=== PATIENT | female | born 1935 | race Caucasian/White ===

== ENCOUNTER 2016-10-15 09:58 | Outpatient (CLI) | payer MEDICARE | END 2016-10-15 09:59 | disposition home or self-care (01) | DX: N30.01 Acute cystitis with hematuria (principal); R35.0 Frequency of micturition ==

== ENCOUNTER 2017-03-17 11:39 | Outpatient (CLI) | payer MEDICARE ==
[2017-03-17 18:00] LABS: BILIRUBIN,URINE NEGATIVE (NEGATIVE)
[2017-03-17 18:17] LABS: UA w/ MICROSCOPIC CHARGE YES; UR CULTURE IF IND INDICATED
== END 2017-03-17 11:40 | disposition home or self-care (01) ==
LOC: LAB.F 11:39
PROVIDERS: ATTEND Internal Medicine
DX: N30.90 Cystitis, unspecified without hematuria (principal)
CPT/HCPCS: 81001; 81003; 87086

== ENCOUNTER 2020-07-18 12:03 | Outpatient (CLI) | payer MEDICARE ==
--- NOTE | 2020-07-18 14:19 | XRAY Report ---
PROCEDURE: Hip w/Pelvis 2-3V LT INDICATIONS: LT HIP PAIN TECHNIQUE: AP pelvis with lateral view(s) of the bilateral hip(s). COMPARISON: None. FINDINGS: Bones: No fractures or dislocations but there is moderate degenerative osteoarthritis at each hip david int, symmetric. Pelvic ring appears intact. No suspicious bony lesions. Soft tissues: The visualized bowel gas pattern is normal. No suspicious soft tissue calcifications. IMPRESSION: No trauma found. Symmetric moderate hip joint osteoarthritis noted. Low lumbosacral spin e moderately severe degenerative disc disease also is incidentally noted and only partially visualize d on the frontal view. Reviewed by: Renzo Molina MD on 07/18/2020 2:18 PM PDT Approved by: Renzo Molina MD on 07/18/2020 2:18 PM PDT Station ID: [id number]
== END 2020-07-18 12:04 | disposition home or self-care (01) ==
LOC: DI 12:03
PROVIDERS: ATTEND Internal Medicine
DX: M16.12 Unilateral primary osteoarthritis, left hip (principal); M51.36 Other intervertebral disc degeneration, lumbar region

== ENCOUNTER 2022-02-06 14:30 | Outpatient (CLI) | payer MEDICARE ==
--- NOTE | 2022-02-06 16:54 | MRI Report ---
PROCEDURE: Lumbar Spine W/O INDICATIONS: LEG PAIN, NOCTURNAL LEG CRAMPS TECHNIQUE: Noncontrast sagittal T1 spin echo and T2 fast echo, sagittal STIR, axial T1 and T2 fast spin echo thr ough the lumbar spine. In cases with scoliosis, additional coronal T2 fast spin echo may be performe d. COMPARISON: None. FINDINGS: Image quality: Excellent. Alignment and Curvature: There is normal bony alignment. Convex right thoracolumbar spine scoliosis. Bone Marrow: Modic type I reactive endplate changes noted adjacent to the L2-L3 and L4-L5 discs. Raj c type II reactive endplate changes noted adjacent to the L1-L2, L3-L4 and L5-S1 discs. No acute vert ebral body compression fractures. Spinal Cord: Conus medullaris terminates at the L1-L2 disc level. Visualized cord demonstrates norm al signal and size. Paraspinous Soft Tissues: No paravertebral masses. T12-L1: Loss of disc signal and height. Moderate, diffuse disc bulge. Mild bilateral facet hypertrop hy. Mild narrowing of the central canal. Moderate bilateral neural foraminal narrowing. No neural com pression L1-L2: Loss of disc signal and height. Moderate, diffuse disc bulge. Mild bilateral facet hypertro phy. Mild narrowing of the central canal. Moderate right and severe left neuroforaminal narrowing com pression the exiting left L1 nerve root. L2-L3: Loss of disc signal and height. Moderate, diffuse disc bulge. Severe bilateral facet hypert rophy. Severe narrowing of the central canal compression of the nerve roots of the cauda equina. Mode rate right and severe left neural foraminal narrowing with compression of the exiting left L2 nerve r oot. L3-L4: Loss of disc signal and height. Mild, diffuse disc bulge. [id number] bilateral facet o f artery. Moderately minimal complete hypertrophy. Moderate narrowing of the central canal. Moderate right and severe left neural foraminal narrowing with compression the exiting left L3 nerve root. L4-L5: Loss of disc signal and height. Mild, diffuse disc bulge. Moderate bilateral facet hypertrop hy. Moderate narrowing of the central canal. Severe right and moderate left neural foraminal narrowin g with compression of the exiting right L4 nerve root. L5-S1: Loss of disc signal and height. Mild, diffuse disc bulge. Small left foraminal disc protrusi on. Left foraminal disc protrusion abuts and compresses the exiting left L5 nerve root. Mild bilatera l facet hypertrophy. Mild narrowing of the central canal. Mild right and moderate left neural foramin al narrowing. IMPRESSION: 1. Convex right thoracolumbar spine scoliosis. 2. Multilevel degenerative disc disease. 3. Multilevel facet arthropathy. 4. Severe L2-L3 central canal stenosis with compression of the nerve roots of the cauda equina. 5. Severe left L2-L3 and L3-L4 neural foraminal narrowing with compression of the exiting left L2 and L3 nerve roots. Severe right L4-L5 neural foraminal narrowing with compression of the exiting right L4 nerve root. 6. L5-S1 left foraminal disc protrusion which abuts and compresses the exiting left L5 nerve root. Reviewed by: Kiley Yao MD, PhD on 02/06/2022 4:53 PM PDT Approved by: Kiley Yao MD, PhD on 02/06/2022 4:53 PM PDT Station ID: [id number]
== END 2022-02-06 14:31 | disposition home or self-care (01) ==
LOC: DI 14:30
PROVIDERS: ATTEND Internal Medicine
DX: M47.816 Spondylosis without myelopathy or radiculopathy, lumbar region (principal); M47.26 Other spondylosis with radiculopathy, lumbar region; M48.061 Spinal stenosis, lumbar region without neurogenic claudication; M51.16 Intervertebral disc disorders with radiculopathy, lumbar region; M51.17 Intervertebral disc disorders with radiculopathy, lumbosacral region; M48.07 Spinal stenosis, lumbosacral region; M47.27 Other spondylosis with radiculopathy, lumbosacral region; M41.9 Scoliosis, unspecified

== ENCOUNTER 2023-05-05 17:38 | Outpatient (CLI) | payer MEDICARE | END 2023-05-05 17:39 | disposition EMS.NT | LOC: EMS 17:38 | DX: R53.1 Weakness (principal); R60.0 Localized edema ==

== ENCOUNTER 2023-05-05 18:43 | Emergency (ER) | payer MEDICARE ==
--- OUTSIDE RECORDS SUMMARY | 2023-05-05 18:52 | EXTERNAL MEDICAL SUMMARY RPT | Continuity of Care Document ---
Author Name Unknown Address [address] [place] [address] Phone Organization [facility] Address [address] [place] [address] Phone Care Team Providers Care Associate Professor Of Pathology Name Role Phone Unavailable Unavailable Unavailable Feliz Clancy Md Unavailable Unavailable Medications date description facility 2023-05-04 00:00 tramadol [facility] 2023-05-04 00:00 metoprolol tartrate [facility] 2023-05-05 00:00 metoprolol tartrate [facility] 2023-05-04 00:00 lisinopril [facility] 2023-05-05 00:00 lisinopril [facility] 2023-05-04 00:00 metoprolol tartrate [facility] 2023-05-05 00:00 metoprolol tartrate [facility] 2023-05-04 00:00 amlodipine [facility] 2023-05-05 00:00 amlodipine [facility] 2023-05-04 00:00 lisinopril [facility] 2023-05-05 00:00 lisinopril [facility] 2023-05-04 00:00 omeprazole [facility] 2023-05-05 00:00 omeprazole [facility] 2023-05-04 00:00 amlodipine [facility] 2023-05-05 00:00 amlodipine [facility] 2023-05-04 00:00 lisinopril [facility] 2023-05-05 00:00 lisinopril [facility] 2023-05-04 00:00 metoprolol tartrate [facility] 2023-05-05 00:00 metoprolol tartrate [facility] 2023-05-04 00:00 amlodipine [facility] 2023-05-05 00:00 amlodipine [facility] 2023-05-04 00:00 lisinopril [facility] 2023-05-05 00:00 lisinopril [facility] 2023-05-04 00:00 tramadol [facility] 2023-05-04 00:00 omeprazole [facility] 2023-05-05 00:00 omeprazole [facility] 2023-05-04 00:00 amlodipine [facility] 2023-05-05 00:00 amlodipine [facility] 2023-05-04 00:00 omeprazole [facility] 2023-05-05 00:00 omeprazole [facility] 2023-05-04 00:00 omeprazole [facility] 2023-05-05 00:00 omeprazole [facility] 2023-05-04 00:00 tramadol [facility] 2023-05-04 00:00 tramadol [facility] 2023-05-04 00:00 metoprolol tartrate [facility] 2023-05-05 00:00 metoprolol tartrate [facility] Problems date description facility 2023-05-04 00:00 Lumbar radiculopathy [facility] 2023-05-04 00:00 Spinal stenosis of lumbar regio n [facility] 2023-05-04 00:00 Osteoarthritis of hip [facility] 2023-05-04 00:00 Osteoarthrosis, unsp ecified whether generalized or localized, involving pelvic region and thigh [facility] 2023-05-04 00:00 Spinal stenosis of l umbar region without neurogenic claudication [facility] 2023-05-04 00:00 Thoracic or lumbosac ral neuritis or radiculitis, unspecified [facility] 2023-05-04 00:00 Bilateral primary os teoarthritis of hip [facility] 2023-05-04 00:00 Spinal stenosis, lum bar region without neurogenic claudication [facility] 2023-05-04 00:00 Radiculopathy, lumbar region [facility] Procedures date description facility 2023-05-04 00:00 Visit Code Hold [facility] Social History date description facility 2023-05-04 00:00 Never smoker [facility] Vital Signs date measurement value units 2023-05-04 00:00 BMI 21.96 kg/m2 2023-05-04 00:00 BP_diastolic 74 mmHg 2023-05-04 00:00 BP_systolic 133 mmHg 2023-05-04 00:00 heart_rate 80 /min 2023-05-04 00:00 height_metric 175.26 cm 2023-05-04 00:00 height_standard 69 in 2023-05-04 00:00 respiration_rate 17 /min 2023-05-04 00:00 temperature_metric 36.17 C 2023-05-04 00:00 temperature_standard 97.1 F 2023-05-04 00:00 weight_metric 67.22 kg 2023-05-04 00:00 weight_standard 148.2 lb
[2023-05-05] MEDS ORDERED: SODIUM CHLORIDE 0.9% 500 ML IV STA (19:16)
[2023-05-05 19:33] LABS: BASOPHILS % (AUTO) 0.2 %; EOSINOPHILS % (AUTO) 0.1 %; HCT - HEMATOCRIT 35.1 % (37.0-47.0); HGB - HEMOGLOBIN 11.9 g/dL (12.0-16.0); LYMPHOCYTES # (AUTO) 0.4 10^3/uL (1.5-3.5); LYMPHOCYTES % (AUTO) 3.1 %; MEAN CORPUSCULAR HEMOGLOBIN 33.6 pg (27.0-31.0); MEAN CORPUSCULAR HGB CONC 33.9 g/dL (32.0-36.0); MEAN CORPUSCULAR VOLUME 99.2 fL (81.0-99.0); MEAN PLATELET VOLUME 8.5 fL (7.9-10.8); MONOCYTES # (AUTO) 1.2 10^3/uL (0.0-1.0); MONOCYTES % (AUTO) 10.2 %; NEUTROPHILS # (AUTO) 10.4 10^3/uL (1.5-6.6); PLT - PLATELET COUNT 307 10^3/uL (130-450); RED BLOOD COUNT 3.54 10^6/uL (4.20-5.40); RED CELL DISTRIBUTION WIDTH 12.9 % (12.0-15.0); WHITE BLOOD COUNT 12.1 x10^3/uL (4.8-10.8)
--- NOTE | 2023-05-05 19:34 | ED Physician Documentation ---
History of Present Illness - Stated complaint Stated Complaint: WEAKNESS - Chief complaint Chief Complaint: Ext Problem - History obtained from History obtained from: Patient, Family (Son) - Additonal information Additional information: Patient is an 87-year-old female presenting for evaluation of leg weakness that has been progressively worsening for the past several weeks. Patient is here with her son who has been visiting for the past 10 days. Patient's son states that since he arrived here he has felt that her weakness has gotten worse. He thinks perhaps they have been doing more activity.They have gotten her a walker but even with that at times she needs assistance to get up and he feels like she is losing strength in her legs. She has not had any falls. They tried calling Dr. Reddy's office last week but were told that she would not be able to get an appointment until June and if needed to come to the emergency department.Patient came by private vehicle. She was ambulating this morning in her home. Again she denies any falls. She does not take a blood thinner. She denies recent illness with fever, chest pain, shortness of air, abdominal symptoms. She denies dysuria But has had some frequency. Per son she has had a little bit of congestion and nonproductive cough today. She does have swelling to her lower extremities which has not significantly changed.Patient denies back pain, saddle anesthesia, numbness, bowel or bladder incontinence. Review of Systems Constitutional: denies: Fever Cardiac: denies: Chest pain / pressure Respiratory: reports: Cough. denies: Dyspnea GI: denies: Abdominal Pain Musculoskeletal: reports: Extremity swelling. denies: Back pain Neurologic: reports: Generalized weakness. denies: Headache PD PAST MEDICAL HISTORY - Past Medical History Cardiovascular: Hypertension - Past Surgical History Past Surgical History: No - Present Medications Home Medications: Ambulatory Orders Medication Instructions Recorded Confirmed lisinopriL [Lisinopril] 40 mg PO BID 04/17/15 04/17/15 Metoprolol Tartrate [Lopressor] 50 mg PO BID 05/05/23 05/05/23 Omeprazole Magnesium 20 mg PO DAILY 05/05/23 05/05/23 amLODIPine [Norvasc] 5 mg PO DAILY 05/05/23 05/05/23 cephALEXin [Keflex] 500 mg PO Q6H #28 cap 05/05/23 traMADol [Ultram] 50 mg PO Q4-6H 05/05/23 05/05/23 - Allergies Allergies/Adverse Reactions: Allergies Allergy/AdvReac Type Severity Reaction Status Date / Time No Known Drug Allergies Allergy Verified 05/05/23 18:50 - Social History Does the pt smoke?: No Smoking Status: Never smoker Does the pt drink ETOH?: Yes Does the pt have substance abuse?: No - Immunizations Immunizations are current?: No Immunizations: TDAP >10years/unknown PD ED PE NORMAL - General General: Alert and oriented X 3, No acute distress, Well developed/nourished - HEENT HEENT: Atraumatic, Moist mucous membranes - Neck Neck: Supple, no meningeal sign - Cardiac Cardiac: No murmur, Strong equal pulses, Other (Tachycardic, Irregular rhythm) - Respiratory Respiratory: No respiratory distress, Clear bilaterally - Abdomen Abdomen: Soft, Non tender - Derm Derm: Warm and dry - Extremities Extremities: No calf tenderness / cord (Bilateral lower extremity edema,), Other (Normal strength in bilateral hip flexion, knee extension and flexion, ankle dorsiflexion and plantarflexion. 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 Relevant findings are: Rate 101 sinus rhythm, PVCs, no STEMI Rate: Rate (enter#) (101) Rhythm: NSR Intervals: No: Prolonged QT Ischemia: No: ST elevation c/w ischemia Other comments: Other comments (PVCs) Compare to prior EKG: Old EKG unavailable - Labs Labs: Laboratory Tests 05/05/23 05/05/23 05/05/23 19:25 19:25 19:25 WBC 12.1 H RBC 3.54 L Hgb 11.9 L Hct 35.1 L MCV 99.2 H MCH 33.6 H MCHC 33.9 RDW 12.9 Plt Count 307 MPV 8.5 Neut # (Auto) 10.4 H Lymph # (Auto) 0.4 L Brooke # (Auto) 1.2 H Eos # (Auto) 0.0 Baso # (Auto) 0.0 Absolute Nucleated RBC 0.00 Nucleated RBC % 0.0 Sodium 128 L Potassium 3.2 L Chloride 97 L Carbon Dioxide 22 Anion Gap 9.0 BUN 25 H Creatinine 0.9 Estimated GFR (MDRD) 59 L Glucose 119 H Lactic Acid 0.6 Calcium 9.2 Total Bilirubin 0.3 AST 16 ALT 25 Alkaline Phosphatase 101 Total Protein 5.7 L Albumin 3.2 Globulin 2.5 Albumin/Globulin Ratio 1.3 Lipase 3 L Urine Color Urine Clarity Urine pH Ur Specific [place] Urine Protein Urine Glucose (UA) Urine Ketones Urine Occult Blood Urine Nitrite Urine Bilirubin Urine Urobilinogen Ur Leukocyte Esterase Urine RBC Urine WBC Urine WBC Clumps Ur Squamous Epith Cells Urine Bacteria Ur Microscopic Review Urine Culture Comments Nasal Adenovirus (PCR) Nasal B. parapertussis DNA (PCR) Nasal Coronavir 229E PCR Nasal Coronavir HKU1 PCR Nasal Coronavir NL63 PCR Nasal Coronavir OC43 PCR Nasal Enterovir/Rhinovir PCR Nasal Influenza B PCR Nasal Influenza A PCR Nasal Parainfluen 1 PCR Nasal Parainfluen 2 PCR Nasal Parainfluen 3 PCR Nasal Parainfluen 4 PCR Nasal RSV (PCR) Nasal B.pertussis DNA PCR Nasal C.pneumoniae (PCR) John Human Metapneumo PCR Nasal M.pneumoniae (PCR) Nasal SARS-CoV-2 (PCR) 05/05/23 05/05/23 20:18 21:35 WBC RBC Hgb Hct MCV MCH MCHC RDW Plt Count MPV Neut # (Auto) Lymph # (Auto) Brooke # (Auto) Eos # (Auto) Baso # (Auto) Absolute Nucleated RBC Nucleated RBC % Sodium Potassium Chloride Carbon Dioxide Anion Gap BUN Creatinine Estimated GFR (MDRD) Glucose Lactic Acid Calcium Total Bilirubin AST ALT Alkaline Phosphatase Total Protein Albumin Globulin Albumin/Globulin Ratio Lipase Urine Color LIGHT YELLOW Urine Clarity HAZY Urine pH 5.5 Ur Specific [place] 1.010 Urine Protein 30 H Urine Glucose (UA) NEGATIVE Urine Ketones TRACE Urine Occult Blood SMALL H Urine Nitrite NEGATIVE Urine Bilirubin NEGATIVE Urine Urobilinogen 0.2 (NORMAL) Ur Leukocyte Esterase SMALL H Urine RBC 0-5 Urine WBC >25 H Urine WBC Clumps PRESENT Ur Squamous Epith Cells RARE Squamous Urine Bacteria Many H Ur Microscopic Review INDICATED Urine Culture Comments INDICATED Nasal Adenovirus (PCR) NOT DETECTED Nasal B. parapertussis DNA (PCR) NOT DETECTED Nasal Coronavir 229E PCR NOT DETECTED Nasal Coronavir HKU1 PCR NOT DETECTED Nasal Coronavir NL63 PCR NOT DETECTED Nasal Coronavir OC43 PCR NOT DETECTED Nasal Enterovir/Rhinovir PCR DETECTED A Nasal Influenza B PCR NOT DETECTED Nasal Influenza A PCR NOT DETECTED Nasal Parainfluen 1 PCR NOT DETECTED Nasal Parainfluen 2 PCR NOT DETECTED Nasal Parainfluen 3 PCR NOT DETECTED Nasal Parainfluen 4 PCR NOT DETECTED Nasal RSV (PCR) NOT DETECTED Nasal B.pertussis DNA PCR NOT DETECTED Nasal C.pneumoniae (PCR) NOT DETECTED Jhon Human Metapneumo PCR NOT DETECTED Nasal M.pneumoniae (PCR) NOT DETECTED Nasal SARS-CoV-2 (PCR) NOT DETECTED PD Medical Decision Making - ED course Complexity details: reviewed results, re-evaluated patient, d/w patient ED course: Patient is an 87-year-old female presenting for evaluation of weakness that has been worsening for the past 7 to 10 days. No head injury. No focal deficits. Does not appear septic. CBC, chemistries were obtained and reviewed. Urine analysis is concerning for infection. Respiratory swab is positive for rhinovirus. Chemistries demonstrate a sodium of 128, potassium of 3.2. Is unclear what her baseline sodium is as there is no prior labs here or through the [facility] system. Patient cannot recall a specific history of hyponatremia. She was given a small fluid bolus here. She is feeling much better and is able to ambulate here. Patient is agreeable to treatment plan with antibiotics and is eager to go home. His son who is with her also feels comfortable as he is seeing his mother ambulate here. They are advised on need for close follow-up with PCP especially in regards to her sodium level. They are also counseled on concerning symptoms to return for. 2040 - Reviewed labs with patient and her son. There are no prior labs here for comparison. Discussed that her sodium is low at 128 but it is unclear whether this is chronic or an acute thing for her. Patient is unsure and cannot recall the last time she had labs done. She states the last time she saw Dr. Reddy was 3 years ago. 2245 - Patient was able to ambulate with a walker with no assistance. Patient needed help swinging her legs off the side of the bed but was able to push herself up and stand up on her own. Patient and son both state that she appears to be improved and are comfortable with plan for discharge. Departure - Departure Disposition: 01 Home, Self Care Clinical Impression: Weakness, Hyponatremia, UTI (urinary tract infection), Rhinovirus Condition: Stable Instructions: ED Hyponatremia, ED UTI Cystitis Female Follow-Up: Madison Reddy MD [Provider Admit Priv/Credential] - Within 3 Days Prescriptions: cephALEXin [Keflex] 500 mg PO Q6H #28 cap Comments: You were evaluated for weakness and found to have a low sodium level of 128 as well as a urinary tract infection and a viral illness called rhinovirus which Causes symptoms at the common cold. These could all be contributing to your weakness. It is unclear whether your sodium level is chronically low or if this is new today. I have sent a prescription for an antibiotic to treat your urine infection to [facility] in [place]. Please make sure to complete the course of the antibiotic. I would recommend close follow-up with Dr. Reddy for reevaluation as well as to recheck your sodium. If at anytime you develop any worsening symptoms please consider return to the emergency department. Forms: PCP List Discharge Date/Time: 05/05/23 23:12
[2023-05-05 19:48] LABS: ALBUMIN 3.2 g/dL (3.2-5.5); ALBUMIN/GLOBULIN RATIO 1.3 (1.0-2.2); BILIRUBIN,TOTAL 0.3 mg/dL (0.2-1.0); CALCIUM 9.2 mg/dL (8.5-10.3); CREATININE 0.9 mg/dL (0.6-1.3); POTASSIUM 3.2 mmol/L (3.5-4.5); TOTAL PROTEIN 5.7 g/dL (6.4-8.9)
[2023-05-05] MEDS ORDERED: POTASSIUM CHLORIDE 20 MEQ TABLET PO STA (20:03)
--- NOTE | 2023-05-05 20:41 | XRAY Report ---
PROCEDURE: Chest 1 View X-Ray INDICATIONS: weakness TECHNIQUE: One view of the chest was acquired. COMPARISON: 9 mL FINDINGS: Surgical changes and devices: None. Lungs and pleura: No pleural effusions or pneumothorax. Lungs are clear. Mediastinum: Mediastinal contours appear normal. Heart size is normal. Bones and chest wall: No suspicious bony lesions. Overlying soft tissues appear unremarkable. IMPRESSION: No acute cardiopulmonary disease. Reviewed by: Juan Connolly MD on 05/05/2023 8:40 PM PDT Approved by: Juan Connolly MD on 05/05/2023 8:40 PM PDT Station ID: [id number]
[2023-05-05 21:15] LABS: B. PARAPERTUSSIS- RESP PCR PAN NOT DETECTED; B. PERTUSSIS- RESP PCR PANEL NOT DETECTED; C. PNEUMONIAE- RESP PCR PANEL NOT DETECTED; CORONAVIRUS 229E-RESP PCR NOT DETECTED; CORONAVIRUS HKU1-RESP PCR NOT DETECTED; CORONAVIRUS NL63-RESP PCR NOT DETECTED; CORONAVIRUS OC43-RESP PCR NOT DETECTED; HUMAN METAPNEUMOVIRUS NOT DETECTED; INFLUENZA A- RESP PCR PANEL NOT DETECTED; INFLUENZA B - RESP PCR PANEL NOT DETECTED; M. PNEUMONIAE- RESP PCR PANEL NOT DETECTED; PARAINFLUENZA VIRUS 1 NOT DETECTED; PARAINFLUENZA VIRUS 2 NOT DETECTED; PARAINFLUENZA VIRUS 3 NOT DETECTED; PARAINFLUENZA VIRUS 4 NOT DETECTED; RHINOVIRUS/ENTEROVIRUS DETECTED; RSV- RESP PCR PANEL NOT DETECTED; SARS-CoV-2 -RESP PCR PANEL NOT DETECTED
[2023-05-05 21:47] LABS: BILIRUBIN,URINE NEGATIVE (NEGATIVE); GLUCOSE, URINE (UA) NEGATIVE (NEGATIVE); KETONES,URINE (UA) TRACE mg/dL (NEGATIVE); LEUKOCYTE ESTERASE, URINE SMALL (NEGATIVE); NITRITE,URINE NEGATIVE (NEGATIVE); OCCULT BLOOD,URINE SMALL (NEGATIVE); PH,URINE 5.5 PH (5.0-7.5); PROTEIN,URINE 30 mg/dL (NEGATIVE); UROBILINOGEN,URINE 0.2 (NORMAL) E.U./dL (NORMAL)
[2023-05-05 21:49] LABS: CLARITY,URINE HAZY (CLEAR)
[2023-05-05 21:57] LABS: BACTERIA,URINE Many /HPF (None Seen); RBC,URINE 0-5 /HPF (0-5); SQUAMOUS EPITHELIAL CELL,UR RARE Squamous (<= Few); WBC CLUMPS,URINE PRESENT; WBC,URINE >25 /HPF (0-5)
[2023-05-05] MEDS ORDERED: cefTRIAXone 1 GM in SODIUM CHLORIDE 0.9% MINIBAG 100 ML IV STA (22:04)
[2023-05-05] MEDS ORDERED: cefTRIAXone 1 GM VIAL ONE (22:21)
[2023-05-05 23:40] VITALS: BP 135/69; O2SAT 97
== END 2023-05-05 23:12 | disposition home or self-care (01) ==
LOC: ED 18:43
DX: N39.0 Urinary tract infection, site not specified (principal); E87.1 Hypo-osmolality and hyponatremia; R53.1 Weakness; B34.8 Other viral infections of unspecified site; Z20.822 Contact with and (suspected) exposure to COVID-19; I10 Essential (primary) hypertension; Z79.899 Other long term (current) drug therapy
CPT/HCPCS: 36415; 71045; 80053; 81001; 83605; 83690; 85025; 87086; 87181; 87633; 93005; 96374; 99284; A9270; 81003